=== PATIENT | male | born 1975 | race Caucasian/White ===

== ENCOUNTER 2022-01-21 10:08 | Emergency (ER) | payer SELFPAY ==
[2022-01-21 10:15] VITALS: BP 180/80; PULSE 105; RESP 20; TEMP 36.4; O2SAT 96; BMI 40.8
--- NOTE | 2022-01-21 10:35 | XR_ITS ---
WS: [id number] Exam: XR hand RT [id number] [id number] Date/Time of Exam: 01/21/2022 10:36 AM Reason For Exam: finger injury There is avulsion fracture of the distal tuft of the fifth finger with soft tissue laceration. No oth er bony injury identified. No dislocation. XR/XR hand RT [id number] [id number] IMPRESSION: 1. Avulsion of the distal tuft of the fifth finger with soft tissue laceration and edema.
--- NOTE | 2022-01-21 11:42 | ED_ITS ---
HPI - Wound/Laceration General: Chief Complaint: Wound/Laceration Stated Complaint: Tip of his finger cutt off/hanging on Time Seen by Provider: 01/21/22 10:32 History of Present Illness: Patient comes in with a crush injury to his right pinky finger. States he got it crushed under a railroad tie. Associated symptoms: Denies fever(s), nausea or vomiting Review of Systems Const: Denies: fever(s) or body aches Eyes: Denies: change in vision or blurry vision ENMT: Denies: throat pain or odynophagia Card: Denies: chest pain or palpitations Resp: Denies: dyspnea or productive cough GI: Denies: abdominal pain, nausea or vomiting : Denies: flank pain or dysuria Musc: Denies: neck pain or back pain Skin/Breast: Denies: rash or pruritus Neuro: Denies: headache(s) or numbness in extremities Psych: Denies: anxiety or change in appetite Endo: Denies: polyuria or excessive sweating PFSH ED PFSH: Social History (Updated 07/26/21 @ 14:16 by Pascale Lux LPN) Smoking and tobacco status: never smoked Physical Exam Const: COMMON NORMALS: no acute distress, patient oriented x3, healthy appearing and alert HENMT: COMMON NORMALS: normocephalic and atraumatic HEAD & SCALP: normocephalic and atraumatic Eye: COMMON NORMALS: Equal, round and reactive pupils present and EOMs intact bilaterally PUPIL: Yes Equal, round and reactive pupils present Neck/C-Spine: COMMON NORMALS: full ROM and supple Resp: COMMON NORMALS: normal respiratory effort, No retractions and No use of accessory muscles Cardio: COMMON NORMALS: regular rate and regular rhythm RATE: regular rate RHYTHM: regular rhythm GI: COMMON NORMALS: Normal to inspection, nondistended, normoactive bowel sounds present, Soft to palpation and non-tender PALPATION: Yes Soft to palpation Back/Pelvis: COMMON NORMALS: thoracic and lumbar spine normal to inspection and no thoracic nor lumbar tenderness Extremity: OTHER: partial amputation of the distal right pinky with disruption of the nailbed. The distal portion of skin still is pink with perfusion. Neuro: COMMON NORMALS: patient oriented x3 SENSORIUM/ORIENTATION: Yes alert Psych: COMMON NORMALS: mental status grossly normal and cooperative Skin: COMMON NORMALS: no rashes or lesions noted and no wounds GENERAL SKIN EXAM: no rashes or lesions noted Procedures Laceration Laceration 1: Site: hand Side (If applicable): right Size (cm): 3 Description: other (Irregular laceration/avulsion of the tip of the pinky finger through the nailbed) Local Anesthetic: lidocaine 1% Amount of anesthesia used (mL): 8 Skin layer closed with: other (3-0 Polysorb) Number of sutures: 10 Technique: simple, interrupted Course Vital Signs: Vital signs: Vital Signs Temperature 97.5 F L 01/21/22 10:15 Pulse Rate 86 01/21/22 11:50 Respiratory Rate 16 01/21/22 11:50 Blood Pressure 179/135 01/21/22 11:50 Pulse Oximetry 97 01/21/22 11:50 MDM - Wound/Laceration Medical Decision Making Patient comes in with a crush injury to his right pinky finger. States he got it crushed under a railroad tie. On physical exam he has partial amputation of the distal right pinky with disruption of the nailbed. The distal portion of skin still is pink with perfusion. After performing a digital block I thoroughly cleaned the wound with iodine then repaired it with sutures. I placed a sterile dressing and will refer him to hand surgery for follow-up. We will give him a tetanus shot, and discharged with precautions to return for worsening or changing symptoms. Lab Data Radiology Impressions Hand X-Ray 01/21/22 10:35 IMPRESSION: 1. Avulsion of the distal tuft of the fifth finger with soft tissue laceration and edema. Discharge Plan Discharge Clinical Impression: Laceration Condition: Stable Prescriptions: No Action No Known Home Medications 0RF prednisone 20 mg tablet 40 mg PO DAILY 5 Days Qty: 20 0RF Discharge Orders: Discharge ED (Routine); Ordered 01/21/22 Ordered By: Artis Dempsey Activity Restrictions/Additional Instructions: Call Dr Dominguez with hand surgery today to schedule follow up. [address] [place] [address] Coding Level of Care Code ED Supervisor [employer] for [employer] Fwd Exam Comprehensive
[2022-01-21 11:50] VITALS: BP 179/135; PULSE 86; RESP 16; O2SAT 97
[2022-01-21] MEDS: tetanus-diphtheria tox (adult) 0.5 mL SDV IM (12:02)
--- NOTE | 2022-01-24 08:26 | DCPLANNER ---
accounts payable manager had message to refer patient to [facility], Dr. Michaels. accounts payable manager faxed patients records to the [facility], , clinic will call patient with appointment information.
== END 2022-01-21 12:09 ==
PROVIDERS: Emergency Provider Emergency Medicine
DX: S61.216A Laceration without foreign body of right little finger without damage to nail, initial encounter (principal); W23.0XXA Caught, crushed, jammed, or pinched between moving objects, initial encounter; Z23 Encounter for immunization
CPT/HCPCS: 12002; 73120; 90471; 90714; 99283

== ENCOUNTER → 2022-08-31 09:41 | Outpatient (BNVA) | payer BC, MEDICAID, SELFPAY | PROVIDERS: PCP Family Medicine; Visit Provider Family Medicine | DX: I10 Essential (primary) hypertension (principal); H26.9 Unspecified cataract; E66.9 Obesity, unspecified; Z76.89 Persons encountering health services in other specified circumstances | CPT/HCPCS: 80053; 80061; 83036; 85025 ==

== ENCOUNTER → 2023-03-08 10:42 | Outpatient (BNVA) | payer BC, MEDICAID, SELFPAY | PROVIDERS: PCP Family Medicine; Visit Provider Family Medicine | DX: E66.9 Obesity, unspecified (principal); E78.2 Mixed hyperlipidemia; I10 Essential (primary) hypertension; R73.03 Prediabetes; E83.42 Hypomagnesemia | CPT/HCPCS: 80053; 80061; 83036; 83735 ==

== ENCOUNTER → 2023-05-23 10:05 | Outpatient (BNVA) | payer BC, MEDICAID, SELFPAY | PROVIDERS: PCP Family Medicine; Visit Provider Family Medicine | DX: E11.9 Type 2 diabetes mellitus without complications (principal); I10 Essential (primary) hypertension | CPT/HCPCS: 83036 ==

== ENCOUNTER → 2023-10-04 10:30 | Outpatient (BNVA) | payer BC, MEDICAID, SELFPAY | PROVIDERS: PCP Family Medicine; Visit Provider Family Medicine | DX: I10 Essential (primary) hypertension (principal); E78.2 Mixed hyperlipidemia; R73.03 Prediabetes | CPT/HCPCS: 80053; 80061; 83036 ==

== ENCOUNTER → 2024-02-05 16:00 | Outpatient (BNVA) | payer BC, MEDICAID, SELFPAY | PROVIDERS: PCP Family Medicine; Visit Provider Family Medicine | DX: I10 Essential (primary) hypertension (principal); E11.9 Type 2 diabetes mellitus without complications | CPT/HCPCS: 80053; 80061; 82607; 83036 ==

== ENCOUNTER → 2024-07-04 09:02 | Outpatient (BNVA) | payer BC, MEDICAID, SELFPAY | PROVIDERS: PCP Family Medicine; Visit Provider Family Medicine | DX: R73.03 Prediabetes (principal); I10 Essential (primary) hypertension; E78.2 Mixed hyperlipidemia | CPT/HCPCS: 80053; 80061; 83036 ==

== ENCOUNTER → 2025-06-30 16:17 | Outpatient (BNVA) | payer BC, MEDICAID, SELFPAY | PROVIDERS: PCP Family Medicine; Visit Provider Family Medicine | DX: R73.03 Prediabetes (principal) | CPT/HCPCS: 80053; 80061; 83036; 85025 ==